=== PATIENT | female | born 1970 | race Caucasian/White ===

== ENCOUNTER → 2025-02-26 | Outpatient (CLI) | payer OTHER, SELFPAY ==
[2025-02-26 21:16] LABS: Hematocrit 48.1 % (37-47); Hemoglobin 15.3 g/dL (12.0-15.0); Immature Granulocytes Count 0.050 X10^3/uL (0.0-0.0); Mean Corp Hgb Conc 31.8 g/dL (32-36); Mean Corpuscular Volume 82.9 fL (81-99); Mean Platelet Vol. 10.4 fl (6.2-12.0); NRBC Flagged by Analyzer 0 % (0-5); Platelet Count 454 K/mm3 (150-450); RBC Distribution Width CV 14.3 % (11.6-14.6); RBC Distribution Width SD 42.5 fl (35.1-43.9); Red Blood Count 5.80 M/mm3 (4.2-5.4); White Blood Count 11.1 K/mm3 (4.4-11.0)
[2025-02-26 21:55] LABS: AST(SGOT) 27 U/L (<=31); Alanine Aminotransfer ALT/SGPT 29 U/L (<=34); Albumin, Serum 4.2 g/dL (3.5-5.0); Alkaline Phosphatase 138 U/L (35-104); Anion Gap 16 (5-15); BUN 13 mg/dL (4-19); BUN/Creat Ratio 14.3 RATIO (10-20); Calcium,Total 9.6 mg/dL (7.6-11.0); Carbon Dioxide 18.4 mmol/L (21.0-32.0); Chloride 104 mmol/L (98-108); Globulin 3.2 g/dL (2.2-4.2); Glucose 130 mg/dL (70-99); Potassium 3.9 mmol/L (3.3-5.1)
== END | disposition home or self-care (01) ==
LOC: LAB 21:06 → LABSPEC 02-27 09:40
DX: N93.9 Abnormal uterine and vaginal bleeding, unspecified (principal)
CPT/HCPCS: 36415; 80053; 84443; 85025

== ENCOUNTER → 2025-03-02 | Outpatient (CLI) | payer OTHER, SELFPAY ==
--- NOTE | 2025-03-02 09:34 | US_ITS ---
PROCEDURE: TRANSVAGINAL NON- 03/02/2025 REASON FOR EXAM: AUB. Heavy and long menstrual cycles. 1st day of last menstrual period was 02/14/2025. 2 para 0. TECHNIQUE: Procedure Code: USTVAG Modality: US Procedure: TRANSVAGINAL NON- COMPARISON: None FINDINGS: Measurements: Uterus: 9.0 x 5.5 x 4.5 with a volume of 116 mL Endometrial Thickness: 7 mm Right Ovary: 2.2 x 2.0 x 1.8 with a volume of 4.1 mL. Left Ovary: 2.4 x 2.0 x 1.7 with a volume of 4.1 mL. Uterus: The uterus is anteverted. There is a hypoechoic heterogeneous mass identified in the posterior left myometrial portion of the uterus measuring 3.2 x 3.3 x 2.6 cm. This most likely represents a uterine fibroid. Nabothian cysts are seen within the cervix. Endometrium: 7 mm. Endometrium is hyperechoic. There is no IUD identified. Right ovary: Size, contour, and echogenicity are within normal limits. There is blood flow to the ovary. There are no masses seen. Left ovary: Size, contour, and echogenicity are within normal limits. There is blood flow to the ovary. There are no masses seen. Other: There is no free fluid in the cul-de-sac. US/Transvaginal Non- IMPRESSION: There is a mass within the myometrial portion of the uterus, most likely repres enting a uterine fibroid. Endometrial stripe thickness measures 7 mm. 1st day of last menstrual period w as 02/22/2025. Normal appearance to both ovaries. Reading Location: [id number]
== END | disposition home or self-care (01) ==
LOC: OPUS 09:10
PROVIDERS: PCP Family Medicine
DX: N93.9 Abnormal uterine and vaginal bleeding, unspecified (principal)
CPT/HCPCS: 76830